=== PATIENT | male | born 1990 ===

== ENCOUNTER 2020-01-19 10:14 | Day surgery (SDC) | payer BC, OTHER ==
[~2020-01-19 10:14] MED LIST: Lactated Ringers 1,000 ML IV SCH; ceFAZolin 2 GM in Premix Bag 1 BAG IV SCH
[2020-01-19] MEDS ORDERED: fentaNYL 100 MCG/2 ML SDV ONE (11:18)
[2020-01-19] MEDS: fentaNYL 100 MCG/2 ML SDV IVPUSH PRN ×3 (11:22→14:21)
[2020-01-19] MEDS ORDERED: Propofol 200 MG/20 ML SDV ONE ×3 (11:30→13:19)
[2020-01-19] MEDS ORDERED: Midazolam 1 MG/ML 2 ML SDV ONE ×2 (11:31→13:22)
[2020-01-19] MEDS ORDERED: fentaNYL 250 MCG/5 ML SDV ONE (11:31)
[2020-01-19] MEDS ORDERED: Lidocaine 2% 5 ML SDV ONE (11:32)
[2020-01-19] MEDS ORDERED: Ketorolac 30 MG/ML SDV ONE (11:32)
[2020-01-19] MEDS ORDERED: Ondansetron 4 MG/2 ML SDV ONE (11:32)
[2020-01-19] MEDS ORDERED: Glycopyrrolate 0.2 MG/ML SDV ONE (11:32)
--- NOTE | 2020-01-19 11:34 | PCM.PREANE ---
Preanesthetic Assessment - Anesthesia/Transfusion/Family Hx Anesthesia History: No Prior Anesthesia Family History of Anesthesia Reaction: No Transfusion History: No Prior Transfusion(s) Intubation History: Unknown - Review of Systems General: No Symptoms Pulmonary: No Symptoms Cardiovascular: No Symptoms Gastrointestinal: No Symptoms Neurological: No Symptoms Other: Reports: None - Physical Assessment Height: 6 ft 2 in Weight: 70.307 kg ASA Class: 1 Mental Status: Alert & Oriented x3 Airway Class: Mallampati = 1 Dentition: Reports: Normal Dentition Thyro-Mental Finger Breadths: 3 Mouth Opening Finger Breadths: 3 ROM/Head Extension: Full Lungs: Clear to Auscultation, Normal Respiratory Effort Cardiovascular: Regular Rate, Regular Rhythm - Lab Values: Laboratory Last Values COVID-19 ([facility]) NEGATIVE (NEGATIVE) 01/19/20 10:23 - Allergies Allergies/Adverse Reactions: Allergies Allergy/AdvReac Type Severity Reaction Status Date / Time Fish Containing Products Allergy Airway Verified 01/17/20 13:17 Tightness peas Allergy Airway Verified 01/17/20 13:17 Tightness - Blood Blood Available: No - Anesthesia Plan Pre-Op Medication Ordered: None - Acknowledgements Anesthesia Type Planned: General Anesthesia Pt an Appropriate Candidate for the Planned Anesthesia: Yes Alternatives and Risks of Anesthesia Discussed w Pt/Guardian: Yes Pt/Guardian Understands and Agrees with Anesthesia Plan: Yes PreAnesthesia Questionnaire - Past Health History Medical/Surgical History: Denies Medical/Surgical History - Infectious Disease History Infectious Disease History: Reports: Chicken Pox - Past Surgical History Head Surgeries/Procedures: Reports: None - SUBSTANCE USE Smoking Status *Q: Never Smoker Recreational Drug Use History: No - HOME MEDS Home Medications: Home Meds . [No Known Home Meds] 04/25/16 [History] - CURRENT (IN HOUSE) MEDS Current Meds: Current Medications Fentanyl (Sublimaze) 50 - 100 mcg IVPUSH Q5M PRN PRN Reason: Pain (severe 7-10) Lactated Ringer's (Ringers, Lactated) 1,000 mls @ 100 mls/hr IV ASDIRECTED [facility] Cefazolin Sodium/Dextrose 2 gm (/ Premix) 50 mls @ 100 mls/hr IV ONCALL ALEENA Discontinued Medications Fentanyl (Sublimaze) Confirm Administered Dose 100 mcg .ROUTE .STK-MED ONE Stop: 01/19/20 11:19
[2020-01-19] MEDS ORDERED: Bupivacaine 0.25% 10 ML SDV ONE (11:39)
[2020-01-19] MEDS ORDERED: Bupivacaine 25%/EPINEPHrine/PF 30 ML ONE (11:39)
[2020-01-19] MEDS ORDERED: Sodium Chloride 0.9% 20 ML ONE (12:34)
[2020-01-19] MEDS ORDERED: ceFAZolin 1 GM Vial ONE (12:34)
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
[2020-01-19] MEDS ORDERED: Acetaminophen 1,000 MG in Premix Bag 1 BAG IV PRN (14:24)
[2020-01-19] MEDS ORDERED: HYDROmorphone 1 MG/ML Syringe ONE ×2 (14:24→14:27)
[2020-01-19] MEDS ORDERED: HYDROmorphone 2 MG/ML Syringe ONE (14:28)
[2020-01-19] MEDS ORDERED: HYDROmorphone 2 MG/ML Syringe IVPUSH ONE ×2 (14:33→15:01)
--- NOTE | 2020-01-19 15:15 | PCM.POSTAN ---
POST ANESTHESIA ASSESSMENT - MENTAL STATUS Mental Status: Alert - VITAL SIGNS Vital Signs: Last Vital Signs Temp 36.2 C 01/19/20 13:53 Pulse 71 01/19/20 14:48 Resp 16 01/19/20 14:48 BP 139/87 01/19/20 14:48 Pulse Ox 98 01/19/20 14:48 - RESPIRATORY Respiratory Status: Respiratory Rate WNL - CARDIOVASCULAR CV Status: Pulse Rate WNL - GASTROINTESTINAL GI Status: No Symptoms
--- NOTE | 2020-01-19 15:30 | PCM48HPAN ---
Post Anesthesia Note - EVALUATION WITHIN 48HRS OF ANESTHETIC Vital Signs in Normal Range: Yes Patient Participated in Evaluation: Yes Respiratory Function Stable: Yes Airway Patent: Yes Cardiovascular Function Stable: Yes Hydration Status Stable: Yes Pain Control Satisfactory: Yes Nausea and Vomiting Control Satisfactory: Yes Mental Status Recovered: Yes Vital Signs: Last Vital Signs Temp 36.2 C 01/19/20 13:53 Pulse 71 01/19/20 14:48 Resp 16 01/19/20 14:48 BP 139/87 01/19/20 14:48 Pulse Ox 98 01/19/20 14:48
[2020-01-19 15:36] VITALS: BP 132/88; PULSE 72
== END 2020-01-19 15:28 | disposition home or self-care (01) ==
LOC: MW.SDS 10:14
PROVIDERS: ATTEND Orthopaedic Surgery
DX: S42.021A Displaced fracture of shaft of right clavicle, initial encounter for closed fracture (principal); Z01.812 Encounter for preprocedural laboratory examination; Z20.828 Contact with and (suspected) exposure to other viral communicable diseases; Z91.010 Allergy to peanuts; Z91.013 Allergy to seafood; Z87.891 Personal history of nicotine dependence; V89.2XXA Person injured in unspecified motor-vehicle accident, traffic, initial encounter
CPT/HCPCS: 23515; 87635; C1713; J0690; J1170; J1885; J2001; J2250; J2405; J2704; J3010; J3490; J7120; U0002